=== PATIENT | female | born 1965 | race Caucasian/White ===

== ENCOUNTER 2017-03-20 03:37 | Emergency (ER) | payer OTHER ==
[~2017-03-20] VITALS: Ht 157.5 cm; Wt 59.0 kg
--- NOTE | ~2017-03-20 | CR127 ---
[facility] A Service of [facility] & [facility] RADIOLOGY TEXT RESULTS PATIENT: JESSI GOLD LOCATION: [facility] : 63 UNIT #: [id number] AGE: [address]: Aquiles Handley MD SEX: F ORDER DR: [id number] [facility] [address] [place], [place] [address] [id number] E MR#: [id number] Acc #: [id number] NAME: JESSI GOLD : 1965 SEX: F STUDY DATE/TIME: 03/20/2017 4:51 UNIT: [facility] ROOM: STUDY DESCRIPTION: CR Foot Complete Min 3 View Rt Attending Physician: Aquiles Handley M.D. Ordering Physician: Aquiles Handley M.D. Primary Care Physician: Braxton Thomas M.D. MEDICAL IMAGING REPORT This report is preliminary unless electronic signature is present EXAM Right foot series, 03/20/2017 HISTORY 51-year-old female in the ED with right foot and ankle pain and soft tissue swelling after injury. Stepped in a hole last night. TECHNIQUE Three-view right foot series. FINDINGS The examination is negative. No fracture, dislocation or other osseous abnormality is demonstrated. IMPRESSION Negative right foot series. Dictated by... Gomez White M.D. THIS IS AN ELECTRONICALLY VERIFIED REPORT Gomez White M.D. at 03/20/2017 10:03 PM Natty TD: 03/20/2017 10:56 JOB #: [id number] MEDICAL IMAGING REPORT Page 1 of 1 COPY
--- NOTE | ~2017-03-20 | CR21 ---
[facility] A Service of [facility] & [facility] RADIOLOGY TEXT RESULTS PATIENT: JESSI GOLD LOCATION: [facility] : 63 UNIT #: [id number] AGE: [address]: Aquiles Handley MD SEX: F ORDER DR: [id number] [facility] [address] [place], [place] [address] [id number] E MR#: [id number] Acc #: [id number] NAME: JESSI GOLD : 1965 SEX: F STUDY DATE/TIME: 03/20/2017 4:50 UNIT: [facility] ROOM: STUDY DESCRIPTION: CR Ankle Min 3 Views Rt Attending Physician: Aquiles Handley M.D. Ordering Physician: Aquiles Handley M.D. Primary Care Physician: Braxton Thomas M.D. MEDICAL IMAGING REPORT This report is preliminary unless electronic signature is present EXAM Right ankle series, 03/20/2017. HISTORY 51-year-old female in the ED complaining of right foot and ankle pain and soft tissue swelling after injury. Stepped in a hole last night. TECHNIQUE Three-view right ankle series. FINDINGS The exam is negative. No fracture, dislocation, arthropathy or other osseous abnormality. IMPRESSION Negative right ankle series. Dictated by... Gomez White M.D. THIS IS AN ELECTRONICALLY VERIFIED REPORT Gomez White M.D. at 03/20/2017 10:03 PM BRIGITTE/diana TD: 03/20/2017 10:57 JOB #: [id number] MEDICAL IMAGING REPORT Page 1 of 1 COPY
[~2017-03-20 03:37] MED LIST: BACTRIM DS TABL1 TA1 PO; DICLOFENAC PO; KEFLEX PO; LEVOXYL150 MC1 PO; MULTI-VITAMIN1 TAB PO; SYNTHROID PO; TALACEN CAPLET1 TAB PO; ULTRAM PO
== END 2017-03-20 05:54 | disposition home or self-care (01) ==
LOC: CED 03:37
DX: S93.401A Sprain of unspecified ligament of right ankle, initial encounter (principal); M54.9 Dorsalgia, unspecified; G89.29 Other chronic pain; I10 Essential (primary) hypertension; F17.210 Nicotine dependence, cigarettes, uncomplicated; W01.0XXA Fall on same level from slipping, tripping and stumbling without subsequent striking against object, initial encounter; Y92.9 Unspecified place or not applicable
CPT/HCPCS: 29540; 73610; 73630; 99283